=== PATIENT | female | born 1985 | race Caucasian/White ===

== ENCOUNTER 2017-12-17 22:45 | Emergency (ER) | payer BC ==
[2017-12-17] MEDS ORDERED: LORazepam 2 MG/ML SDV IVPUSH ONE (23:51)
[2017-12-18] MEDS ORDERED: Sodium Chloride 0.9% 10 ML Syringe FLUSH PRN
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
== END 2017-12-18 01:05 | disposition home or self-care (01) ==
LOC: JP.ED 22:45
DX: S52.202A Unspecified fracture of shaft of left ulna, initial encounter for closed fracture (principal); Z88.1 Allergy status to other antibiotic agents; Z88.0 Allergy status to penicillin; V92.09XA Drowning and submersion due to fall off unspecified watercraft, initial encounter
CPT/HCPCS: 29125; 73090; 96374; 99284; J2060; J7050